=== PATIENT | female | born 1975 | race Caucasian/White ===

== ENCOUNTER → 2016-06-26 | Outpatient (CLI) | payer BC ==
--- NOTE | 2016-06-26 19:33 | US ---
EXAMINATION TYPE: US transvaginal DATE OF EXAM: 06/26/2016 6:21 PM COMPARISON: No previous CLINICAL HISTORY: R10.2 Pelvic Pain. Intermittent right pelvic pain x 2 months, no cycles since stopp ing Depo shot in 2015, 4, para 2, miscarriage 1, ectopic 1 TECHNIQUE: Transvaginal (TV) Date of LMP: EXAM MEASUREMENTS: Uterus: 7.1 x 3.0 x 3.7 cm Endometrial Stripe: 0.7 cm Right Ovary: not seen Left Ovary: 2.9 x 1.8 x 1.7 cm 1. Uterus: anteverted, heterogeneous without any definite lesions seen at this time 2. Endometrium: appears wnl 3. Right Ovary: not seen due to overlying bowel and gas 4. Left Ovary: 1.1 x 1.0 x 1.2cm hypoechoic area 5. Bilateral Adnexa: wnl 6. Posterior cul-de-sac: wnl IMPRESSION: There is a 1.1 cm cyst on the left ovary. Normal uterus and endometrium. No solid adnexal mass. Right ovary is not seen.
== END | disposition home or self-care (01) ==
LOC: RADUSMAIN 18:01
PROVIDERS: ATTEND Obstetrics & Gynecology
DX: N83.202 Unspecified ovarian cyst, left side (principal)
CPT/HCPCS: 76830

== ENCOUNTER 2016-12-12 08:45 | Emergency (ER) | payer BC ==
[2016-12-12] MEDS ORDERED: SODIUM CHLORIDE 0.9% 1,000 ML IV STA (09:21)
[2016-12-12] MEDS ORDERED: MAG HYDROX/AL HYDROX/SIMETH 30 ML, HYOSCYAMINE ELIXIR 10 ML, CIMETIDINE HCL 300 MG, LID... PO STA ×4 (09:21)
--- NOTE | 2016-12-12 09:24 | ED ---
General Adult HPI - General Chief complaint: Abdominal Pain Stated complaint: Abd Pain Time Seen by Provider: 12/12/16 09:16 Source: patient, RN notes reviewed Mode of arrival: ambulatory Limitations: no limitations - History of Present Illness Initial comments: Patient 41-year-old female who presents emergency room today with chief complaint of epigastric pain that started approximately 2 AM. She states she woke up with this pain and discomfort. She states it's been somewhat constant but at times has a sharp pain that comes and goes. Currently Rates a 4/10. States tried some Pepcid and Tums with no relief of the symptoms. Patient does admit to feeling nauseated and admits to some diaphoresis. Patient states never had symptoms like this in the past. Patient denies any recent fever, chills, shortness of breath, chest pain, back pain, vomiting, numbness or tingling, dysuria or hematuria, constipation or diarrhea, headaches or visual changes, or any other complaints. - Related Data Home Medications Medication Instructions Recorded Confirmed Venlafaxine HCl ER [Effexor Xr] 150 mg PO DAILY 09/17/15 12/12/16 Zolpidem [Ambien] 5 - 10 mg PO HS PRN 09/17/15 12/12/16 clonazePAM [KlonoPIN] 0.5 tab PO HS 09/17/15 12/12/16 Cholecalciferol [Vitamin D3] 800 unit PO DAILY 12/12/16 12/12/16 Dicyclomine [Bentyl] 10 mg PO DAILY 12/12/16 12/12/16 Levothyroxine Sodium [Synthroid] 88 mcg PO DAILY 12/12/16 12/12/16 Previous Rx's Medication Instructions Recorded Famotidine [Pepcid] 20 mg PO BID #20 tablet 12/12/16 Allergies Allergy/AdvReac Type Severity Reaction Status Date / Time codeine Allergy Unknown Verified 12/12/16 09:42 Childhood Penicillins Allergy Unknown Verified 12/12/16 09:42 Childhood Review of Systems ROS Statement: Those systems with pertinent positive or pertinent negative responses have been documented in the HPI. ROS Other: All systems not noted in ROS Statement are negative. Past Medical History Past Medical History: Thyroid Disorder Additional Past Medical History / Comment(s): IBS History of Any Multi-Drug Resistant Organisms: None Reported Past Surgical History: Section, Tonsillectomy Past Psychological History: Anxiety, Depression Smoking Status: Current every day smoker Past Alcohol Use History: None Reported Past Drug Use History: None Reported General Exam - General Exam Comments Initial Comments: General: The patient is awake and alert, in no distress, and does not appear acutely ill. Eye: Pupils are equal, round and reactive to light, extra-ocular movements are intact. No nystagmus. There is normal conjunctiva bilaterally. No signs of icterus. Ears, nose, mouth and throat: There are moist mucous membranes and no oral lesions. Neck: The neck is supple, there is no tenderness or JVD. Cardiovascular: There is a regular rate and rhythm. No murmur, rub or gallop is appreciated. Respiratory: Lungs are clear to auscultation, respirations are non-labored, breath sounds are equal. No wheezes, stridor, rales, or rhonchi. Gastrointestinal: Soft, non-distended. Mild tenderness epigastric. There is no rebound or guarding present. No CVA tenderness. Bowel sounds are unremarkable. Musculoskeletal: Normal ROM, no tenderness. Strength 5/5. Sensation intact. Pulses equal bilaterally 2+. Neurological: A&O x 3. CN II-XII intact, There are no obvious motor or sensory deficits. Coordination appears grossly intact. Speech is normal. Skin: Skin is warm and dry and no rashes or lesions are noted. Psychiatric: Cooperative, appropriate mood & affect, normal judgment. Limitations: no limitations Course Vital Signs 12/12/16 09:07 Temperature 99 F Pulse Rate 84 Respiratory 18 Rate Blood Pressure 119/79 O2 Sat by Pulse 97 Oximetry Medical Decision Making - Medical Decision Making Patient reexamined at this time shows no signs of distress. She does admit the GI cocktail didn't improve her symptoms she is pain-free at this time. Abdomen soft nontender. Her labs been reviewed are unremarkable. Patient's EKG shows normal sinus rhythm. Patient denies any other complaints or symptoms at this time. Patient will be discharged home with Pepcid advised follow-up family doctor next 2 days. Advised return if any symptoms increase worsen or for any other concerns. - Lab Data Result diagrams: 12/12/16 09:52 12/12/16 09:52 Lab Results 12/12/16 12/12/16 12/12/16 Range/Units 09:52 09:52 09:52 WBC 8.2 (3.8-10.6) k/uL RBC 4.81 (3.80-5.40) m/uL Hgb 14.1 (11.4-16.0) gm/dL Hct 41.4 (34.0-46.0) % MCV 86.1 (80.0-100.0) fL MCH 29.4 (25.0-35.0) pg MCHC 34.1 (31.0-37.0) g/dL RDW 14.2 (11.5-15.5) % Plt Count 268 (150-450) k/uL Neutrophils % 71 % Lymphocytes % 20 % Monocytes % 5 % Eosinophils % 0 % Basophils % 0 % Neutrophils # 5.9 (1.3-7.7) k/uL Lymphocytes # 1.7 (1.0-4.8) k/uL Monocytes # 0.4 (0-1.0) k/uL Eosinophils # 0.0 (0-0.7) k/uL Basophils # 0.0 (0-0.2) k/uL PT (9.0-12.0) sec INR (<1.2) APTT (22.0-30.0) sec Sodium 139 (137-145) mmol/L Potassium 4.7 (3.5-5.1) mmol/L Chloride 105 (98-107) mmol/L Carbon Dioxide 24 (22-30) mmol/L Anion Gap 10 mmol/L BUN 11 (7-17) mg/dL Creatinine 0.72 (0.52-1.04) mg/dL Est GFR (MDRD) Af Amer >60 (>60 ml/min/1.73 sqM) Est GFR (MDRD) Non-Af >60 (>60 ml/min/1.73 sqM) Glucose 82 (74-99) mg/dL Calcium 10.2 (8.4-10.2) mg/dL Magnesium 1.8 (1.6-2.3) mg/dL Total Bilirubin 0.4 (0.2-1.3) mg/dL AST 24 (14-36) U/L ALT 29 (9-52) U/L Alkaline Phosphatase 79 (38-126) U/L Total Creatine Kinase 88 (30-135) U/L CK-MB (CK-2) 1.1 (0.0-2.4) ng/mL CK-MB (CK-2) Rel Index 1.3 Troponin I <0.012 (0.000-0.034) ng/mL Total Protein 8.1 (6.3-8.2) g/dL Albumin 4.6 (3.5-5.0) g/dL Amylase 74 (30-110) U/L Lipase 144 (23-300) U/L 12/12/16 Range/Units 09:52 WBC (3.8-10.6) k/uL RBC (3.80-5.40) m/uL Hgb (11.4-16.0) gm/dL Hct (34.0-46.0) % MCV (80.0-100.0) fL MCH (25.0-35.0) pg MCHC (31.0-37.0) g/dL RDW (11.5-15.5) % Plt Count (150-450) k/uL Neutrophils % % Lymphocytes % % Monocytes % % Eosinophils % % Basophils % % Neutrophils # (1.3-7.7) k/uL Lymphocytes # (1.0-4.8) k/uL Monocytes # (0-1.0) k/uL Eosinophils # (0-0.7) k/uL Basophils # (0-0.2) k/uL PT 9.8 (9.0-12.0) sec INR 1.0 (<1.2) APTT 25.7 (22.0-30.0) sec Sodium (137-145) mmol/L Potassium (3.5-5.1) mmol/L Chloride (98-107) mmol/L Carbon Dioxide (22-30) mmol/L Anion Gap mmol/L BUN (7-17) mg/dL Creatinine (0.52-1.04) mg/dL Est GFR (MDRD) Af Amer (>60 ml/min/1.73 sqM) Est GFR (MDRD) Non-Af (>60 ml/min/1.73 sqM) Glucose (74-99) mg/dL Calcium (8.4-10.2) mg/dL Magnesium (1.6-2.3) mg/dL Total Bilirubin (0.2-1.3) mg/dL AST (14-36) U/L ALT (9-52) U/L Alkaline Phosphatase (38-126) U/L Total Creatine Kinase (30-135) U/L CK-MB (CK-2) (0.0-2.4) ng/mL CK-MB (CK-2) Rel Index Troponin I (0.000-0.034) ng/mL Total Protein (6.3-8.2) g/dL Albumin (3.5-5.0) g/dL Amylase (30-110) U/L Lipase (23-300) U/L Disposition Clinical Impression: Epigastric pain Disposition: HOME SELF-CARE Condition: Good Instructions: Abdominal Pain (ED) Additional Instructions: Please use medication as discussed. Please follow-up with family doctor in the next 2 days of symptoms have not improved. Please return to emergency room if the symptoms increase or worsen or for any other concerns. Prescriptions: Famotidine [Pepcid] 20 mg PO BID #20 tablet Referrals: Lester Cornejo DO [Primary Care Provider] - 1-2 days Time of Disposition: 11:45
--- NOTE | 2016-12-12 10:12 | XR ---
EXAMINATION TYPE: XR chest 2V DATE OF EXAM: 12/12/2016 CLINICAL HISTORY: Pain TECHNIQUE: Frontal and lateral views of the chest are obtained. COMPARISON: None FINDINGS: There is no focal air space opacity, pleural effusion, or pneumothorax seen. The cardiac silhouette size is within normal limits. The osseous structures are intact. Scoliotic curve to the left. IMPRESSION: No acute cardiopulmonary process.
[2016-12-12 10:18] LABS: Basophils % (A) 0 %; CH 28.6; CHCM 33.4; Eosinophils % (A) 0 %; HCT 41.4 % (34.0-46.0); HDW 2.57; HGB 14.1 gm/dL (11.4-16.0); Luc # (Auto) 0.25; Luc % (Auto) 3; Lymphocytes # (A) 1.7 k/uL (1.0-4.8); Lymphocytes % (A) 20 %; MCH 29.4 pg (25.0-35.0); MCHC 34.1 g/dL (31.0-37.0); MCV 86.1 fL (80.0-100.0); Mean Platelet Volume 6.6; Monocytes # (A) 0.4 k/uL (0-1.0); Monocytes % (A) 5 %; Neutrophils # (A) 5.9 k/uL (1.3-7.7); Neutrophils % (A) 71 %; RBC 4.81 m/uL (3.80-5.40); RDW 14.2 % (11.5-15.5); WBC 8.2 k/uL (3.8-10.6)
[2016-12-12 10:23] LABS: Partial Thromboplastin Time 25.7 sec (22.0-30.0); Prothrombin Time 9.8 sec (9.0-12.0)
[2016-12-12 10:27] LABS: ALT 29 U/L (9-52); AST 24 U/L (14-36); Alkaline Phosphatase 79 U/L (38-126); Amylase 74 U/L (30-110); Anion Gap 10 mmol/L; Blood Urea Nitrogen 11 mg/dL (7-17); Calcium 10.2 mg/dL (8.4-10.2); Carbon Dioxide 24 mmol/L (22-30); Chloride 105 mmol/L (98-107); Glucose 82 mg/dL (74-99); Magnesium 1.8 mg/dL (1.6-2.3); Non-African American GFR(MDRD) >60 (>60 ml/min/1.73 sqM); Potassium 4.7 mmol/L (3.5-5.1); Sodium 139 mmol/L (137-145); Total Bilirubin 0.4 mg/dL (0.2-1.3); Total Protein 8.1 g/dL (6.3-8.2)
[2016-12-12 10:32] LABS: Creatine Kinase 88 U/L (30-135)
[2016-12-12 10:45] LABS: Creatine Kinase MB 1.1 ng/mL (0.0-2.4); Troponin I <0.012 ng/mL (0.000-0.034)
[2016-12-12 11:52] VITALS: BP 116/81; PULSE 76; RESP 14; TEMP 97.2
== END 2016-12-12 12:03 | disposition home or self-care (01) ==
LOC: EC 08:45
DX: R10.13 Epigastric pain (principal); R11.0 Nausea; R61 Generalized hyperhidrosis; E07.9 Disorder of thyroid, unspecified; K58.9 Irritable bowel syndrome, unspecified; F32.9 Major depressive disorder, single episode, unspecified; F41.9 Anxiety disorder, unspecified; F17.200 Nicotine dependence, unspecified, uncomplicated; Z79.899 Other long term (current) drug therapy; Z88.0 Allergy status to penicillin; Z88.5 Allergy status to narcotic agent
CPT/HCPCS: 36415; 71020; 80053; 82150; 82550; 82553; 83690; 83735; 84484; 85025; 85610; 85730; 93005; 96360; 96361; 99284

== ENCOUNTER → 2016-12-24 | Outpatient (CLI) | payer BC ==
--- NOTE | 2016-12-24 10:35 | FL ---
EXAMINATION TYPE: FL UGI DATE OF EXAM: 12/24/2016 COMPARISON: CT abdomen and pelvis September 17, 2015 HISTORY: Epigastric pain per patient in order. TECHNIQUE: A double contrast UGI study is performed utilizing air and barium. A total of 42 seconds of fluoroscopic time was utilized during procedure. 29 spot images were saved during real-time perfor john. FINDINGS: Rag Grader image of the abdomen shows some gas prominent small bowel loops in the left upper to mid abdomen. Overall nonobstructive bowel gas pattern is present. The esophagus shows normal motility and emptying into the stomach. No evidence of hiatal hernia or s tricture noted. No intraluminal mass is present. The stomach shows normal distensibility, peristalsis, and mucosal folds. No evidence of any mass or ulcer disease. Several episodes of esophageal reflux are seen during real-time performance of study. The duodenal bulb, sweep, and proximal small bowel loops are unremarkable. IMPRESSION: Several episodes of gastroesophageal reflux visualized otherwise unremarkable study.
== END | disposition home or self-care (01) ==
LOC: RADFLWHC 09:25
PROVIDERS: ATTEND Family Medicine
DX: K21.9 Gastro-esophageal reflux disease without esophagitis (principal)
CPT/HCPCS: 74240

== ENCOUNTER 2018-05-25 19:11 | Emergency (ER) | payer BC ==
[2018-05-25 19:41] VITALS: RESP 18
--- NOTE | 2018-05-25 20:28 | ED ---
General Adult HPI - General Chief complaint: ENT Stated complaint: Hearing loss lt ear Time Seen by Provider: 05/25/18 19:19 Source: patient, RN notes reviewed, old records reviewed Mode of arrival: ambulatory Limitations: physical limitation - History of Present Illness Initial comments: 42-year-old female patient with past medical history of anxiety, depression, vertigo presents to ED with approximate 6 hours of muffled hearing in her left ear. She reports that she does still have intact hearing it is just muffled. Patient denies any other current complaints. Patient denies headache changes in vision upper or lower extremity weakness, facial droop, difficulty speaking, altered mental status. Patient reports that she had an upper respiratory infection approximately 2 weeks ago. Patient currently denies cough, fevers chills, rhinitis. Systemic: Pt denies fatigue, myalgia, fever/chills, rash. Pt denies weakness, night sweats, weight loss. Neuro: Pt denies headache, visual disturbances, syncope or pre-syncope. HEENT: Pt denies ocular discharge or irritation, otalgia, rhinorrhea, pharyngitis or notable lymphadenopathy. Cardiopulmonary: Pt denies chest pain, SOB, heart palpitations, dyspnea on exertion. Abdominal/GI: Pt denies abdominal pain, n/v/d. : Pt denies dysuria, burning w/ urination, frequency/urgency. Denies new onset urinary or bowel incontinence. MSK: Pt denies myalgia, loss of strength or function in extremities. Neuro: Pt denies new onset weakness, paresthesias. - Related Data Home Medications Medication Instructions Recorded Confirmed Venlafaxine HCl ER [Effexor Xr] 150 mg PO DAILY 09/17/15 12/12/16 Zolpidem [Ambien] 5 - 10 mg PO HS PRN 09/17/15 12/12/16 clonazePAM [KlonoPIN] 0.5 tab PO HS 09/17/15 12/12/16 Cholecalciferol [Vitamin D3] 800 unit PO DAILY 12/12/16 12/12/16 Dicyclomine [Bentyl] 10 mg PO DAILY 12/12/16 12/12/16 Levothyroxine Sodium [Synthroid] 88 mcg PO DAILY 12/12/16 12/12/16 Previous Rx's Medication Instructions Recorded Famotidine [Pepcid] 20 mg PO BID #20 tablet 12/12/16 Fluticasone Propionate [Flonase 1 - 2 spray EA NOSTRIL DAILY 5 05/25/18 Allergy Relief] Days ml Loratadine [Claritin] 10 mg PO DAILY 10 Days #10 tab 05/25/18 Allergies Allergy/AdvReac Type Severity Reaction Status Date / Time codeine Allergy Unknown Verified 05/25/18 19:36 Childhood Penicillins Allergy Unknown Verified 05/25/18 19:36 Childhood Review of Systems ROS Statement: Those systems with pertinent positive or pertinent negative responses have been documented in the HPI. ROS Other: All systems not noted in ROS Statement are negative. Past Medical History Past Medical History: GERD/Reflux, Thyroid Disorder Additional Past Medical History / Comment(s): IBS History of Any Multi-Drug Resistant Organisms: None Reported Past Surgical History: Section, Tonsillectomy Additional Past Surgical History / Comment(s): D AND C, SEPTUM REPAIR Past Psychological History: Anxiety, Depression Smoking Status: Current every day smoker Past Alcohol Use History: None Reported Past Drug Use History: None Reported General Exam - General Exam Comments Initial Comments: Constitutional: NAD, AOX3, Pt has pleasant affect. HEENT: NC/AT, trachea midline, neck supple, no lymphadenopathy. Posterior pharynx non erythematous, without exudates. External ears appear normal, without discharge. L TM displayed mild effusion, no erythema or perforation. R TM pale regan, no effusion, bulging or perforation. Hearing intact bilaterally to finger rub. Mucous membranes moist. Eyes PERRLA, EOM intact. There is no scleral icterus. No pallor noted. Cardiopulmonary: RRR, no murmurs, rubs or gallops, no JVD noted. Lungs CTAB in anterior and posterior zhao. No peripheral edema. Abdominal exam: Abdomen soft and non-distended. Abdomen non-tender to palpation in all 4 quadrants. Bowel sounds active in LLQ. No hepatosplenomegaly. No ecchymosis Neuro: CN II-XII intact. No nuchal rigidity. No facial droop or focal deficit. MSK: No posterior calf tenderness bilaterally, homans sign negative bilaterally. Posterior tibialis and radial pulse +2 bilaterally. Sensation intact in upper and lower extremities. Full active ROM in upper and lower extremities, 5/5 stregnth. Limitations: physical limitation Course Vital Signs 05/25/18 19:28 Temperature 98.9 F Pulse Rate 103 H Respiratory 18 Rate Blood Pressure 141/95 O2 Sat by Pulse 96 Oximetry Medical Decision Making - Medical Decision Making 42-year-old female patient presents to ED with approximate 6 hours of muffled hearing in her left ear. Pt VSS, afebrile. Physical exam displayed: Normal neurologic exam. L TM displayed mild effusion, no erythema or perforation. R TM pale regan, no effusion, bulging or perforation. Hearing intact bilaterally to finger rub. Explained these findings to patient at length. Explained it is likely that she has developed a middle ear effusion secondary to her recent upper respiratory infection and that is what is causing her symptoms. Shared decision-making conducted in regards to imaging. Patient to undergo a trial of Flonase and Claritin, pt will follow up with PCP in 1-2 days for continued evaluation. Pt to return to ED if new s/sx develop or if condition worsens in anyway, strict return precautions, pt verbalized understanding. Case discussed in depth with Dr. Marie. Disposition Clinical Impression: Middle ear effusion Disposition: HOME SELF-CARE Condition: Stable Instructions (If sedation given, give patient instructions): Hearing Loss (ED) Additional Instructions: Patient to adhere to previously discussed treatment plan and will take medication - flonase and clairitin as directed. Patient to follow up with PCP in 1-2 days for continued evaluation. Please return to ED if new signs or symptoms develop or if condition worsens in anyway. Prescriptions: Fluticasone Propionate [Flonase Allergy Relief] 1 - 2 spray EA NOSTRIL DAILY 5 Days ml Loratadine [Claritin] 10 mg PO DAILY 10 Days #10 tab Is patient prescribed a controlled substance at d/c from ED?: No Referrals: Lester Cornejo DO [Primary Care Provider] - 1-2 days Time of Disposition: 20:28
[2018-05-25 20:44] VITALS: BP 130/77; PULSE 98; TEMP 98.1
== END 2018-05-25 20:43 | disposition home or self-care (01) ==
LOC: EC 19:11
DX: H74.8X2 Other specified disorders of left middle ear and mastoid (principal); E07.9 Disorder of thyroid, unspecified; F41.9 Anxiety disorder, unspecified; F32.9 Major depressive disorder, single episode, unspecified; F17.200 Nicotine dependence, unspecified, uncomplicated; Z79.890 Hormone replacement therapy; Z79.899 Other long term (current) drug therapy; Z88.5 Allergy status to narcotic agent; Z88.0 Allergy status to penicillin
CPT/HCPCS: 99283

== ENCOUNTER → 2018-06-23 | Outpatient (CLI) | payer BC ==
--- NOTE | 2018-06-23 12:49 | CT ---
EXAMINATION TYPE: CT brain wo con DATE OF EXAM: 06/23/2018 COMPARISON: None HISTORY: Dizziness. CT DLP: 1045.[address] of the brain was performed. The ventricles, basal cisterns and sulci overlying the cerebral convexities demonstrate a normal appe arance. There is no evidence for intracranial hemorrhage or sulcal effacement. No mass effects are seen. Osseous calvarium is intact. If symptoms persist consider MRI as clinically warranted. IMPRESSION: 1. No acute intracranial process is seen at this time.
[2018-06-23 14:19] LABS: Basophils % (A) 1 %; Eosinophils # (A) 0.1 k/uL (0-0.7); Eosinophils % (A) 1 %; HCT 41.5 % (34.0-46.0); HGB 13.1 gm/dL (11.4-16.0); Lymphocytes # (A) 2.2 k/uL (1.0-4.8); Lymphocytes % (A) 25 %; MCH 28.3 pg (25.0-35.0); MCHC 31.6 g/dL (31.0-37.0); MCV 89.4 fL (80.0-100.0); Monocytes # (A) 0.4 k/uL (0-1.0); Monocytes % (A) 5 %; Neutrophils # (A) 5.7 k/uL (1.3-7.7); Neutrophils % (A) 67 %; Platelet Count 336 k/uL (150-450); RBC 4.64 m/uL (3.80-5.40); RDW 13.7 % (11.5-15.5); WBC 8.5 k/uL (3.8-10.6)
[2018-06-23 14:26] LABS: ALT 27 U/L (9-52); AST 21 U/L (14-36); Albumin 4.4 g/dL (3.5-5.0); Alkaline Phosphatase 81 U/L (38-126); Anion Gap 9 mmol/L; Blood Urea Nitrogen 9 mg/dL (7-17); Carbon Dioxide 27 mmol/L (22-30); Chloride 105 mmol/L (98-107); Glucose 92 mg/dL (74-99); Potassium 4.3 mmol/L (3.5-5.1); Sodium 141 mmol/L (137-145); Total Bilirubin 0.4 mg/dL (0.2-1.3); Total Protein 7.7 g/dL (6.3-8.2)
== END ==
LOC: RADCTMAIN 12:31
PROVIDERS: ATTEND Physician Assistant
DX: R42 Dizziness and giddiness (principal)
CPT/HCPCS: 70450; 80053; 85025

== ENCOUNTER → 2019-01-18 | Outpatient (CLI) | payer BC ==
--- NOTE | 2019-01-18 18:13 | CONS ---
CONSULTATION REASON FOR CONSULTATION: This is a consultation note for sleep apnea. 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 She is coming in today with her complaining of excessive daytime fatigue and sleepiness. She has been snoring a lot. She quits breathing at night as reported by the and her sleep is very much fragmented. She has to wake up early at around 5:30 am in the morning. She goes to bed around 10:00 pm. On weekends, she sleeps till 7:00 am in the morning. She is averaging 6-7 hours of sleep. She snores loud. See has developed also some difficulties in sleep initiation and sleep onset insomnia and she has been taking a combination of Restoril 30 mg and trazodone 50 mg. She takes half an hour before sleep and she is able to generate sleep within 10 minutes. She has undergone nasal septal surgery and she is breathing through her nose for now. She has extensive amount of environmental allergies and she is receiving allergy shots. No history of any motor vehicle accident because of feeling drowsy or sleepy. No falling asleep behind the wheel. She is able to drive between [place] and [place] without any major difficulties. Current Leon score of 15. No sleep paralysis. No hallucinations. No cataplexy. PAST MEDICAL HISTORY: 1. Hypothyroidism. 2. Irritable bowel syndrome. 3. Depression. 4. Chronic environmental allergies. PAST SURGICAL HISTORY: Includes a correction of a deviated nasal septum. , breast left breast/augmentation, ectopic breast surgery, wisdom tooth removal and missed with a D and C. DRUG ALLERGIES: TO PENICILLIN AND CODEINE. MEDICATIONS: Outpatient medication list includes allergy shots, Debbie 180 mg p.o. daily, trazodone 50 mg at bedtime. Restoril 30 mg p.o. daily. Pepcid 20 mg p.o. b.i.d., vitamin D 2000 units daily, Effexor 150 mg p.o. daily, levothyroxine 88 mcg p.o. daily, Bentyl 10 mg p.o. daily, Xanax 0.5 on a p.r.n. basis and Singulair 10 mg p.o. daily. SOCIAL HISTORY: Nonsmoker. No history of alcohol. No history of IV drugs. FAMILY HISTORY: The patient's sister has obstructive sleep apnea. REVIEW OF SYSTEMS: Fourteen-point review of system was done. Positive findings are mentioned above in history of present illness. She is able to breathe through her nose for now. She has environmental allergies to dust, pollen and grass and she has taken allergy shots. She has also symptoms of irritable bowel syndrome which is currently inactive and stable. She has chronic depression and she is well treated with a combination of trazodone at bedtime and Effexor. She has gained around 40 pounds since 10 years. She occasionally wakes up gasping for air. She does not grind her teeth. No panic attacks. No palpitation. No heartburn at nighttime and she is taking Pepcid for symptoms of chronic GE reflux. No other complaints otherwise for now, and positive findings are mentioned above history of present illness. PHYSICAL EXAMINATION: BP is 119/76, pulse 94, respirations 16, temp 98.4. Saturation 96% on room air. Height is 5 feet 4 inches, weight is 178 and BMI 30.0. Neck size 15 inches and general appearance: Calm and comfortable. Head is atraumatic, normocephalic. NECK: Supple. Mallampati class IV. There is no goiter or neck mass. LUNGS: Clear to auscultation. HEART: Heart sounds are regular rate and rhythm. Normal S1, S2. No S3. No murmurs. ABDOMEN: Soft, nontender. No organomegaly. EXTREMITIES: No edema. No cyanosis or clubbing. NEUROLOGIC: Awake and alert. There are no focal neurological deficits. PSYCHIATRIC: Positive for depression. Currently inactive and stable. IMPRESSION: 1. Hypersomnia, under investigation, current Leon score of 15. Rule out underlying obstructive sleep apnea. High likelihood for obstructive sleep apnea as the patient has loud snoring, witnessed apneas and sleep fragmentation. The patient has significant crowding of posterior pharynx with a Mallampati class 4. 2. Sleep onset insomnia related to chronic anxiety/depression. Currently on a combination of Restoril and trazodone. 3. Environmental allergies. Multiple. Currently on allergy shots. 4. Irritable bowel syndrome. 5. Hypothyroidism. 6. Depression. 7. Acid reflux. PLAN: 1. The patient will need a screening polysomnogram to rule out obstructive sleep apnea. 2. Continue trazodone and Restoril for now. 3. Continue allergy treatment and the patient is able to breathe through her nose. May consider CPAP therapy through her nose if the diagnosis is confirmed. 4. Encourage weight loss. 5. Implement good sleep hygiene measures. 6. We will continue to follow. HARIS / JUAN: [id number] /
== END ==
LOC: SLEEP 13:24
PROVIDERS: ATTEND Internal Medicine Critical Care Medicine
DX: G47.10 Hypersomnia, unspecified (principal); G47.00 Insomnia, unspecified; F41.8 Other specified anxiety disorders; K58.9 Irritable bowel syndrome, unspecified; K21.9 Gastro-esophageal reflux disease without esophagitis; Z79.899 Other long term (current) drug therapy; Z91.048 Other nonmedicinal substance allergy status
CPT/HCPCS: 99211

== ENCOUNTER → 2022-02-14 | Outpatient (CLI) | payer BC ==
--- NOTE | 2022-02-14 18:29 | CA ---
Stress Echo Report Janny Mayer Age: 46 Gender: F : 1975 Exam Date: 02/14/2022 10:19 Exam Location: [facility] Ht (in): 65 Wt (lb): 169 Ordering Physician: Lester Cornejo DO Referring Physician: Lester Cornejo DO Auto Tester: Akiko Lakhani RDCS Technologist Procedure CPT: Indication: Z01.818 ENCOUNTER FOR OTHER PREPROCEDURAL EXAMINAT ICD-9 Codes: Rhythm: Patient History: Cardiac Medications: Medications in past 24 hours: Contrast: N/A Stress Results Protocol: Venkata Total dose(mL): Exercise Duration (min:sec): 9.[address] Depression (mm): Angina Score: Stark Score: METS: 10.7 Resting HR: 99 Resting BP: 110 / 77 Peak HR: 160 Peak BP: / 40 Max Predicted HR: 173 92 % Max Predicted HR Target HR: 147 Double Product: Stress Summary: BP Response: Reason for Termination: PT REACHED TARGET HEART RATE Cardiac Symptoms: ECG Analysis Resting ECG: Stress ECG: Arrhythmia: Echo Analysis Resting Echo: Peak Echo Analysis: MEASUREMENTS (Male/Female) Normal Values CONCLUSIONS Excellent exercise tolerance Normal EKG in response to exercise Normal echocardiogram in response to exercise Dr. Moses Posey MD (Electronically Signed) Final Date: 14 February 2022 18:28
== END | disposition home or self-care (01) ==
LOC: RADNMMAIN 09:57
PROVIDERS: ATTEND Family Medicine
DX: Z01.818 Encounter for other preprocedural examination (principal)
CPT/HCPCS: 93351

== ENCOUNTER 2023-09-25 12:57 | Day surgery (SDC) | payer BC ==
[2023-09-25] MEDS: LACTATED RINGERS 1,000 ML IV SCH (13:32)
[2023-09-25] MEDS: IV FLUID CONTINUATION 1,000 ML IV ONE (13:32)
[2023-09-25 13:35] VITALS: TEMP 97.1
[2023-09-25] MEDS ORDERED: PROPOFOL 10 MG/ML 20 ML VIAL IV ONE (15:05)
--- NOTE | 2023-09-25 15:31 | P.PCN ---
Date of Procedure: 09/25/23 Procedure(s) Performed: BRIEF HISTORY: Patient is a 47-year-old pleasant white female scheduled for an elective colonoscopy as a part of screening for colon cancer. PROCEDURE PERFORMED: Colonoscopy. PREOPERATIVE DIAGNOSIS: Screening for colon cancer. IV sedation per Anesthesia. PROCEDURE: After informed consent was obtained, the patient, was brought into the endoscopy unit. IV sedation was administered by Anesthesia under continuous monitoring. Digital rectal examination was normal. Initially the Olympus CF-160 flexible video colonoscope was then inserted in the rectum, gradually advanced into the cecum without any difficulty. Careful examination was performed as the scope was gradually being withdrawn. Ileocecal valve and the appendiceal orifice were visualized and appeared normal. Prep was fair. Mucosa of the cecum, ascending colon, transverse colon, descending colon, sigmoid colon, and rectum appeared normal. Retroflexion was performed in the rectum and no lesions were seen. The patient tolerated the procedure well. 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 RECOMMENDATIONS: Findings of this examination were discussed with the patient as well as her family. She was advised to have repeat screening colonoscopy in 10 years..
[2023-09-25 15:50] VITALS: BP 106/73; PULSE 74; RESP 16
== END 2023-09-25 16:14 | disposition home or self-care (01) ==
LOC: ORWHC2ENDO 12:57
PROVIDERS: ATTEND Internal Medicine Gastroenterology
DX: Z12.11 Encounter for screening for malignant neoplasm of colon (principal); J45.909 Unspecified asthma, uncomplicated; K21.9 Gastro-esophageal reflux disease without esophagitis; F41.9 Anxiety disorder, unspecified; F32.A Depression, unspecified; E07.9 Disorder of thyroid, unspecified; K58.9 Irritable bowel syndrome, unspecified; F17.210 Nicotine dependence, cigarettes, uncomplicated; Z79.899 Other long term (current) drug therapy; Z79.51 Long term (current) use of inhaled steroids; Z88.0 Allergy status to penicillin; Z88.5 Allergy status to narcotic agent
CPT/HCPCS: 81025; 84703; 45378; J2704